=== PATIENT | female | born 1980 | race African-American/Black ===

== ENCOUNTER 2017-02-05 08:58 | Emergency (ER) | payer BC, OTHER ==
--- NOTE | 2017-02-05 10:09 | RAD ---
CHEST 1 VIEW: HISTORY: Chest pain. FINDINGS: No comparison. The cardiac silhouette is magnified by projection. Pulmonary vasculature is upper l imits of normal. Mediastinum is midline. There is no confluent airspace consolidation or evidence of pneumothorax. mainframe architect leads overlie the chest. IMPRESSION: No active cardiopulmonary abnormalities are demonstrated. POS: [facility]
[2017-02-05 10:18] LABS: Hemoglobin 10.7 g/dL (12.0-16.0); Manual Diff?? YES; Mean Corpuscular HGB CONC 30.5 g/dL (32.0-36.0); Mean Corpuscular Hemoglobin 22.9 pg (27.0-31.0); Mean Corpuscular Volume 75.1 fL (81.0-99.0); Platelet Count 276 thou/uL (130-400); RBC Distribution Width 16.3 % (11.5-14.5); Red Blood Cell (RBC) Count 4.65 mill/uL (4.20-5.40); White Blood Cell (WBC) Count 4.8 thou/uL (4.8-10.8)
[2017-02-05 10:19] LABS: Band 2 % (5-11); Lymphocytes 29 % (21-51); MDiff Complete? YES; Neutrophil 60 % (42-75)
[2017-02-05 10:20] LABS: Anisocytosis SLIGHT = 6-15 cells (100X) (0-5/hpf); Eosinophils 1 % (0-10); Microcytosis SLIGHT = 6-15 cells (100X) (0-5/hpf); Monocytes 8 % (0-10); PLT Morphology Comment Appears Adequate
[2017-02-05 10:21] LABS: Anion Gap 14 mmol/L (10-20); BUN (Urea Nitrogen) 9 mg/dL (7.0-18.7); Calc. Creatinine Clearance 0 mL/min (70-130); Carbon Dioxide 21 mmol/L (22-29); Chloride 107 mmol/L (98-107); Estimated GFR-MDRD Greater than 90; Glucose 85 mg/dL (70-105); Potassium 4.2 mmol/L (3.5-5.1); Sodium 138 mmol/L (136-145)
[2017-02-05 10:34] LABS: CKMB 1.2 ng/mL (0-6.6); Troponin I Less than 0.010 ng/mL (< 0.028)
[2017-02-05] MEDS ORDERED: methylPREDNISolone Sod Succ/PF 125 MG/2 ML VIAL ONE (10:38)
== END 2017-02-05 10:50 | disposition home or self-care (01) ==
LOC: MADERS 08:58
DX: J20.9 Acute bronchitis, unspecified (principal)
CPT/HCPCS: 71010; 80048; 82553; 83880; 84484; 85025; 85379; 93005; 96374; J2930

== ENCOUNTER 2021-12-14 03:43 | Emergency (ER) | payer OTHER, SELFPAY | END 2021-12-14 04:25 | disposition home or self-care (01) | LOC: MADERS 03:43 | DX: K59.00 Constipation, unspecified (principal); K64.4 Residual hemorrhoidal skin tags; I10 Essential (primary) hypertension | CPT/HCPCS: 99283 ==